=== PATIENT | male | born 1980 | race Two or more races ===

== ENCOUNTER 2017-10-09 22:45 | Emergency (ER) | payer SELFPAY ==
[2017-10-09 22:54] VITALS: BP 134/66; PULSE 104; RESP 20; O2SAT 99
[2017-10-09] MEDS ORDERED: Sodium Chloride 0.9% 1,000 ML IV SCH (23:00)
[2017-10-09] MEDS ORDERED: HYDROmorphone 0.5 mg/0.5 ml ISec IM STA (23:06)
[2017-10-09] MEDS ORDERED: DiphenhydrAMINE 50 mg/ml Inj IM STA ×2 (23:06→23:08)
[2017-10-09] MEDS ORDERED: HYDROmorphone 1 mg/ml ISec IM STA (23:14)
--- NOTE | 2017-10-09 23:30 | ED PDOC ---
HPI: Neurologic - General Time Seen by Provider: 10/09/17 22:49 Chief Complaint (Nursing): Weakness/Neurological Deficit Source: patient - History of Present Illness Timing/Duration: 1 hour Allergies/Adverse Reactions: Allergies haloperidol [From Haldol] Allergy (Unknown, Verified 10/09/17 22:50) unknown iodine Allergy (Unknown, Verified 10/09/17 22:50) unknown NSAIDS (Non-Steroidal Anti-Inflamma Allergy (Unknown, Unverified 10/09/17 22:50) unknown risperidone [From Risperdal] Allergy (Unknown, Verified 10/09/17 22:50) NAUSEA Additional Complaint(s): Patient states that he has a history of sickle cell SS, prior CVA, prior NC, presenting with "L sided weakness", onset 1 hour prior, stating that he was unable to walk. Initially states he lives in [place] and is here visiting his grandma, but then patient states that he was at "work" when the weakness started. Patient states "I'm in pain and I need 4mg of Dilaudid and 50mg of benadryl before I can do anything." Patient refused to remove clothing or lie down. Refusing to participate in neuro exam until his pain was addressed. Past Medical History Reviewed: Historical Data, Nursing Documentation, Vital Signs Vital Signs: Last Vital Signs Temp Pulse 104 H 10/09/17 22:50 Resp 20 10/09/17 22:50 BP 134/66 10/09/17 22:50 Pulse Ox 99 10/09/17 22:50 - Medical History PMH: Sickle Cell Disease - Family History Family History: States: Unknown Family Hx - Allergies Allergies/Adverse Reactions: Allergies Allergy/AdvReac Type Severity Reaction Status Date / Time haloperidol [From Haldol] Allergy Unknown unknown Verified 10/09/17 22:50 iodine Allergy Unknown unknown Verified 10/09/17 22:50 NSAIDS (Non-Steroidal Allergy Unknown unknown Unverified 10/09/17 22:50 Anti-Inflamma risperidone [From Risperdal] Allergy Unknown NAUSEA Verified 10/09/17 22:50 Review of Systems Review Of Systems: ROS cannot be obtained secondary to pt's inabilty to answer questions. (uncooperative) Physical Exam - Reviewed Nursing Documentation Reviewed: Yes Vital Signs Reviewed: Yes - Physical Exam Appears: Positive for: Well (Patient refused physical exam ), Non-toxic, No Acute Distress Head Exam: Positive for: ATRAUMATIC, NORMAL INSPECTION, NORMOCEPHALIC Skin: Positive for: Normal Color, Warm, DRY Eye Exam: Positive for: EOMI, Normal appearance, PERRL Neurologic/Psych: Positive for: Gait (normal) - ECG O2 Sat by Pulse Oximetry: 99 Pulse Ox Interpretation: Normal Medical Decision Making Medical Decision MakinPM Hx of Sickle cell presenting with L sided weakness -patient has extreme drug seeking behavior, emotionally manipulative, promising that he would cooperate after receiving 4mg of IM dialudid in his buttock with 50mg of benadryl -after leaving room, nurse exhibited the patient taking down the railing of the bed, urinating into a urinal and then pouring it down the sink, then got back in the bed -i explained to the patient that if he was concerned about his health, he should lie down for the CT and that opiates would mar our ability to perform serial neuro exams -4mg of dilaudid and 50mg of benadryl were ordered, immediately after, patient demanded more medication before he would participate in further examination/ testing -case was dicsused with DR. Monroe who agrees to get head CT and then patient could be discharged afterwards if there was no signficiant abnromality -patient was then seen walking without difficulty to the bathroom where he was in there for nearly 10 minutes, came out with a tissue of bright red blood that he purports came from his mouth, however there was no blood seen in his mouth or lips -[place] [employer] was searched including all available states including [place] which is where patient is from, no matches came up; if patient states he has sickle cell and gets dilaudid from his primary care provider in [place], i would have expected to see narcotic prescriptions for dialudid that he states he gets from there -after patient demanded 8mg more of dilaudid after shortly receiving 4mg of dilaudid with 50mg of bendardyl, patient was told he was not going to receive any more opiates, patient then signed out agaisnt medical advice -it is my opinion that this patient is not using his real name, is drug seeking , and was not having a stroke; patient AMA'd understanding the risks of doing so. Patient refuses further care, evaluation or treatment in the ER. Patient informed of the reasons for the following and planned treatment, which patient understands, however still refuses. Patient informed of the risk and benefits of treatment. Informed that the risk could include worsening of current conditions, undiagnosed conditions, disability or even . Patient understands the following risk and the benefits of treatment. Patient has the capacity to make decisions and still refuses treatment by RN, PA and ER MD. Patient encouraged to return to the ER at any time and to follow up with pmd. Disposition - Clinical Impression Clinical Impression: Sickle cell disease - Disposition Referrals: [facility] [Outside] Disposition: Routine/Home Disposition Time: 22:30 Condition: STABLE Instructions: Sickle Cell Disease Forms: [facility] (Portuguese)
--- NOTE | 2017-10-10 08:04 | RAD ---
HISTORY: Code Stroke COMPARISON: No prior. FINDINGS: LUNGS: No active pulmonary disease. PLEURA: No significant pleural effusion identified, no pneumothorax apparent. CARDIOVASCULAR: Normal. OSSEOUS STRUCTURES: No significant abnormalities. VISUALIZED UPPER ABDOMEN: Normal. OTHER FINDINGS: None. IMPRESSION: No acute cardiopulmonary disease appreciated.
== END 2017-10-09 23:58 | disposition left against medical advice (07) ==
LOC: H.ER 22:45
DX: D57.1 Sickle-cell disease without crisis (principal)
CPT/HCPCS: 71045; 96372; 99284; J1170; J1200